=== PATIENT | male | born 1960 | race Caucasian/White ===

== ENCOUNTER 2017-07-09 14:03 | Emergency (ER) | payer BC ==
[2017-07-09 14:17] VITALS: BMI 25.2
--- NOTE | 2017-07-09 14:21 | PDOC ---
Rapid Medical Evaluation Time Seen by Provider: 07/09/17 14:13 Medical Evaluation: Allergies Allergy/AdvReac Type Severity Reaction Status Date / Time No Known Drug Allergies Allergy Unverified 11/26/13 14:27 07/09/17 14:15 I have performed a brief in-person evaluation of this patient. The patient presents with a chief complaint of: Constipation w/ possible rectal pain. Normal BM 2 days ago. No abd pain, n/v. Taking MOM and dulcolax w/ no sig relief. H/o pre-dm, HTN, s/p abd hernia repair >10 years ago. Pertinent physical exam findings:stable I have ordered the following:abd XR The patient will proceed to the ED for further evaluation. Discharge Disposition - Diagnosis Constipation Qualifiers: Constipation type: unspecified constipation type Qualified Code(s): K59.00 - Constipation, unspecified - Referrals Referrals: Janice Olson MD [Primary Care Provider] - - Patient Instructions - Post Discharge Activity
[2017-07-09] MEDS ORDERED: MAGNESIUM CITRATE 300 ML BOTTLE PO ONE (16:23)
[2017-07-09] MEDS ORDERED: MINERAL OIL ENEMA 133 ML ENEMA PR ONE (16:23)
--- NOTE | 2017-07-09 16:27 | PDOC ---
History of Present Illness - General History Source: Patient Exam Limitations: No Limitations - History of Present Illness Initial Comments: 07/09/17 18:04 The patient is a 48 year old male with past medical history of high cholesterol , HTN, diabetes (recently diagnosed), presents to the emergency department due to constipation for the past 2 days. The patient reports he has been drinking milk of magnesia, dulcolax and suppository, with very mild relief. The patient reports crampy pain in the lower quadrant of the abdomen. The patient reports his last two bowel movements were little pellets, today and 2 days ago. The patient reports his baseline normal bowel movement is usually everyday or every other day. The patient reports his last colonoscopy was last year which was normal, another appointment for next year December. The patient reports a change in his diet due to the recent diagnosed of diabetes, more fiber and less starch. The patient reports his last meal was a bowl of cream of wheat. Denies any gas movement or pain. Denies any rectal pain or bleeding. Denies any nausea or vomiting. Denies fever, chills, cough. Denies any chest pain, sob or wheezing. Allergies: NKDA Social history: None reported Surgical history: None reported PCP: Janice Hankins <Adry Jean - Last Filed: 07/09/17 18:05> <Patricia Blanchard - Last Filed: 07/09/17 19:44> - General Chief Complaint: Constipation Stated Complaint: WEAK ABD PAIN Time Seen by Provider: 07/09/17 14:13 Past History <Adry Jean - Last Filed: 07/09/17 18:05> - Past Medical History COPD: No GI Disorders: Yes (POLYPS) HTN: Yes Hypercholesterolemia: Yes - Immunization History Immunization Up to Date: Yes - Suicide/Smoking/Psychosocial Hx Smoking History: Never smoked Have you smoked in the past 12 months: No Hx Alcohol Use: No Drug/Substance Use Hx: No Substance Use Type: None Hx Substance Use Treatment: No <Patricia Blanchard - Last Filed: 07/09/17 19:44> - Past Medical History Allergies/Adverse Reactions: Allergies Allergy/AdvReac Type Severity Reaction Status Date / Time No Known Drug Allergies Allergy Unverified 11/26/13 14:27 Home Medications: Ambulatory Orders Atorvastatin Calcium 10 mg PO HS tablet 11/26/13 Hydrochlorothiazide 12.5 mg PO DAILY tablet 11/26/13 Review of Systems - Review of Systems Able to Perform ROS?: Yes Comments:: 07/09/17 18:04 GENERAL/CONSTITUTIONAL: No fever or chills. No weakness. HEAD, EYES, EARS, NOSE AND THROAT: No change in vision. No ear pain or discharge. No sore throat. CARDIOVASCULAR: No chest pain or shortness of breath. RESPIRATORY: No cough, wheezing, or hemoptysis. GASTROINTESTINAL: (+) constipation for the past 2 days. Crampy belly pain. No nausea, vomiting, diarrhea. GENITOURINARY: No dysuria, frequency, or change in urination. MUSCULOSKELETAL: No joint or muscle swelling or pain. No neck or back pain. SKIN: No rash NEUROLOGIC: No headache, vertigo, loss of consciousness, or change in strength/ sensation. ENDOCRINE: No increased thirst. No abnormal weight change. HEMATOLOGIC/LYMPHATIC: No anemia, easy bleeding, or history of blood clots. ALLERGIC/IMMUNOLOGIC: No hives or skin allergy. <Adry Jean - Last Filed: 07/09/17 18:05> *Physical Exam - Vital Signs Last Vital Signs Temp Pulse Resp BP Pulse Ox 98.7 F 100 H 20 137/79 100 07/09/17 14:14 07/09/17 14:14 07/09/17 14:14 07/09/17 14:14 07/09/17 14:14 - Physical Exam Comments: 07/09/17 18:03 GENERAL: Awake, alert, and fully oriented, in no acute distress HEAD: No signs of trauma EYES: PERRLA, EOMI, sclera anicteric, conjunctiva clear ENT: Auricles normal inspection, hearing grossly normal, nares patent, oropharynx clear without exudates. Moist mucosa NECK: Normal ROM, supple, no lymphadenopathy, JVD, or masses LUNGS: Breath sounds equal, clear to auscultation bilaterally. No wheezes, and no crackles HEART: Regular rate and rhythm, normal S1 and S2, no murmurs, rubs or gallops ABDOMEN: (+) Mild lower left quadrant pain to palpation. Rectal exam showed hard stool in the vault. Soft, No guarding, no rebound. No masses EXTREMITIES: Normal range of motion, no edema. No clubbing or cyanosis. No cords, erythema, or tenderness NEUROLOGICAL: Cranial nerves II through XII grossly intact. Normal speech, normal gait SKIN: Warm, Dry, normal turgor, no rashes or lesions noted. <Adry Jean - Last Filed: 07/09/17 18:05> - Vital Signs Last Vital Signs Temp Pulse Resp BP Pulse Ox 98.7 F 100 H 20 137/79 100 07/09/17 14:14 07/09/17 14:14 07/09/17 14:14 07/09/17 14:14 07/09/17 14:14 <Patricia Blanchard - Last Filed: 07/09/17 19:44> Medical Decision Making - Medical Decision Making 07/09/17 18:04 Documentation prepared by Adry Jean, acting as medical technicians for Patricia Blanchard DO. <Adry Jean - Last Filed: 07/09/17 18:05> - Medical Decision Making 07/09/17 16:24 a/p: 57yo male with 2 days of constipation -passing small hard amounts of stool today and yesterday -took a capful of milk of mag and a dulcolax suppository earlier and had small amount of stool -had outpt labs last week and dx with dm and pt hasn't picked up prescription yet -did change his diet to decrease his carb intake -had a colonoscopy in the past that was "normal", scheduled for his repeat colonoscopy in the fall -on rectal has stool in the vault -will give fleet enema and mag citrate -xray shows nsbgp 07/09/17 19:37 re-eval: pt has had multiple bm in the ED and feels much better states he will call his PMD and gi specialist in the [place] and schedule a follow up. Discussed fluid intake. Stable for d/c to home No n/v in the ED pt states he is hungry and wants to eat at home pt asking to go home. <Patricia Blanchard - Last Filed: 07/09/17 19:44> *DC/Admit/Observation/Transfer <Adry Jean - Last Filed: 07/09/17 18:05> - Discharge Dispostion Decision to Admit order: No - Attestations Physician Attestion: 07/09/17 19:44 I, Dr. Patricia Blanchard DO, attest that this document has been prepared under my direction and personally reviewed by me in its entirety. I further attest, that it accurately reflects all work, treatment, procedures and medical decision -making performed by me. <Patricia Blanchard - Last Filed: 07/09/17 19:44> Diagnosis at time of Disposition: Constipation Qualifiers: Constipation type: unspecified constipation type Qualified Code(s): K59.00 - Constipation, unspecified - Discharge Dispostion Disposition: HOME Condition at time of disposition: Stable - Referrals Referrals: Janice Olson MD [Primary Care Provider] - Hakeem العلي DO [Staff Physician] - - Patient Instructions Printed Discharge Instructions: DI for Constipation Additional Instructions: Please drink plenty of fluids. Please take colace daily (over the counter). Please buy miralax and take 1 capful in 8 oz water every night before bed. Please return to the ED with any further complaints. - Post Discharge Activity
[2017-07-09] MEDS ORDERED: MAGNESIUM CITRATE 300 ML BOTTLE ONE (18:16)
[2017-07-09 20:24] VITALS: BP 126/78; PULSE 88; TEMP 98
== END 2017-07-09 20:23 | disposition home or self-care (01) ==
LOC: JER 14:03
DX: K59.00 Constipation, unspecified (principal); E11.9 Type 2 diabetes mellitus without complications
CPT/HCPCS: 74018-TC-FY; 99284-25

== ENCOUNTER 2023-02-16 16:16 | Inpatient (IN) | payer BC ==
[2023-02-16 18:23] LABS: BASO % 0.5 % (0-2.0); EOS % 0.7 % (0-4.5); HEMATOCRIT 50.4 % (35.4-49); HEMOGLOBIN 17.3 GM/dL (11.7-16.9); LYMPH % 8.3 % (8-40); MCH 31.1 pg (25.7-33.7); MCHC 34.4 g/dl (32.0-35.9); MEAN CELL VOLUME 90.4 fl (80-96); MEAN PLT VOLUME 7.6 fl (7.5-11.1); MONO % 5.8 % (3.8-10.2); NEUT % 84.7 % (42.8-82.8); PLATELET COUNT 250 10^3/uL (134-434); RBC 5.57 M/mm3 (4.00-5.60); RDW 13.3 % (11.9-15.9); WHITE BLOOD COUNT 10.2 K/mm3 (4.0-10.0)
[2023-02-16 18:34] LABS: INR 1.16 (0.83-1.09); PROTHROMBIN TIME (PATIENT) 13.4 SEC (9.7-13.0)
[2023-02-16 18:37] LABS: ACTIVATED PTT 32.5 SECONDS (25.2-36.5)
[2023-02-16 18:38] LABS: POTASSIUM 3.5 mmol/L (3.5-5.1)
[2023-02-16 18:40] LABS: ALBUMIN 3.6 g/dl (3.4-5.0); BLOOD UREA NITROGEN 22.9 mg/dL (7-18); CALCIUM 9.5 mg/dL (8.5-10.1); MAGNESIUM 1.5 mg/dL (1.8-2.4)
[2023-02-16 18:43] LABS: CREATININE 0.9 mg/dL (0.55-1.3)
[2023-02-16 18:45] LABS: BILIRUBIN,TOTAL 0.7 mg/dL (0.2-1); TOT PROT 6.8 g/dl (6.4-8.2)
[2023-02-16 18:49] LABS: N-TERMINAL BNP 2705.8 pg/ml (5-125)
[2023-02-16] MEDS ORDERED: MAGNESIUM SULFATE IN WATER 2 GM/50 ML IVPB IVPB ONE ×2 (19:20→20:58)
[2023-02-16] MEDS ORDERED: ASPIRIN 81 MG CHEWABLE TABLETS PO ONE (20:04)
[2023-02-16] MEDS ORDERED: methylPREDNISolone NA SUCC 125 MG/2 ML VIAL IVPB ONE (20:23)
[2023-02-16] MEDS ORDERED: FUROSEMIDE 40 MG/4 ML INJECTABLE VIAL IVPUSH ONE (20:24)
[2023-02-16 21:22] LABS: POTASSIUM 3.1 mmol/L (3.5-5.1)
[2023-02-16 21:24] LABS: ALBUMIN 3.5 g/dl (3.4-5.0); BLOOD UREA NITROGEN 20.8 mg/dL (7-18); CALCIUM 9.1 mg/dL (8.5-10.1)
[2023-02-16 21:27] LABS: CREATININE 0.8 mg/dL (0.55-1.3)
[2023-02-16 21:29] LABS: BILIRUBIN,TOTAL 0.7 mg/dL (0.2-1); TOT PROT 6.4 g/dl (6.4-8.2)
[2023-02-16] MEDS ORDERED: POTASSIUM CHLORIDE ORAL LIQUID 20 MEQ/15 ML PO ONE (22:06)
[2023-02-16] MEDS ORDERED: PANTOPRAZOLE 40 MG TABLET PO ONE (22:18)
[2023-02-16] MEDS ORDERED: POTASSIUM CHLORIDE ORAL LIQUID 20 MEQ/15 ML ONE (22:19)
[2023-02-16] MEDS ORDERED: ATORVASTATIN CA 10 MG TABLET (FP) ONE (22:19)
[2023-02-16] MEDS ORDERED: methylPREDNISolone NA SUCC 125 MG/2 ML VIAL ONE (22:19)
[2023-02-16] MEDS ORDERED: ASPIRIN 81 MG CHEWABLE TABLETS ONE (22:19)
[2023-02-16] MEDS ORDERED: ENOXAPARIN NA (PORCINE) 40 MG/0.4 ML DISP.SYRIN SQ ONE (22:20)
[2023-02-16] MEDS ORDERED: FUROSEMIDE 40 MG/4 ML INJECTABLE VIAL ONE (22:20)
[2023-02-16] MEDS: INSULIN ASPART SLIDING SCALE (NOVOLOG) 1 VIAL SQ SCH (22:34)
[2023-02-16] MEDS: ATORVASTATIN CA 10 MG TABLET (FP) PO SCH (22:34)
[2023-02-16] MEDS: PANTOPRAZOLE 40 MG TABLET PO SCH (22:34)
[2023-02-16] MEDS: ENOXAPARIN NA (PORCINE) 40 MG/0.4 ML DISP.SYRIN SQ SCH (22:34)
[2023-02-17] MEDS: INSULIN ASPART SLIDING SCALE (NOVOLOG) 1 VIAL SQ SCH ×3 (08:58→18:06)
[2023-02-17] MEDS: PANTOPRAZOLE 40 MG TABLET PO SCH (10:33)
[2023-02-17] MEDS: ENOXAPARIN NA (PORCINE) 40 MG/0.4 ML DISP.SYRIN SQ SCH (10:33)
[2023-02-17] MEDS ORDERED: FUROSEMIDE 40 MG/4 ML INJECTABLE VIAL IVPUSH ONE (14:32)
[2023-02-17] MEDS ORDERED: ATORVASTATIN CA 10 MG TABLET (FP) ONE (23:53)
[2023-02-18] MEDS: INSULIN (LEVEMIR) 100 UNITS/ML UNITS SQ SCH ×3 (00:21→21:25)
[2023-02-18] MEDS: INSULIN ASPART SLIDING SCALE (NOVOLOG) 1 VIAL SQ SCH ×3 (08:04→17:08)
[2023-02-18 08:15] LABS: BASO % 0.4 % (0-2.0); EOS % 0.3 % (0-4.5); HEMATOCRIT 50.2 % (35.4-49); HEMOGLOBIN 16.9 GM/dL (11.7-16.9); LYMPH % 11.7 % (8-40); MCH 30.7 pg (25.7-33.7); MCHC 33.7 g/dl (32.0-35.9); MEAN CELL VOLUME 91.1 fl (80-96); MEAN PLT VOLUME 7.9 fl (7.5-11.1); MONO % 7.6 % (3.8-10.2); PLATELET COUNT 250 10^3/uL (134-434); RBC 5.51 M/mm3 (4.00-5.60); RDW 13.1 % (11.9-15.9)
[2023-02-18 09:30] LABS: BLOOD UREA NITROGEN 22.5 mg/dL (7-18); CALCIUM 8.7 mg/dL (8.5-10.1); POTASSIUM 3.2 mmol/L (3.5-5.1)
[2023-02-18] MEDS ORDERED: FUROSEMIDE 40 MG TABLET (FP) ONE (10:10)
[2023-02-18] MEDS ORDERED: POTASSIUM CHLORIDE TABS 20 MEQ TABLET.ER (FP) PO ONE (10:11)
[2023-02-18] MEDS ORDERED: PANTOPRAZOLE 40 MG TABLET PO ONE (10:11)
[2023-02-18] MEDS ORDERED: ENOXAPARIN NA (PORCINE) 40 MG/0.4 ML DISP.SYRIN SQ ONE (10:11)
[2023-02-18] MEDS: FUROSEMIDE 40 MG TABLET (FP) PO SCH (10:13)
[2023-02-18] MEDS: POTASSIUM CHLORIDE TABS 20 MEQ TABLET.ER (FP) PO SCH (10:13)
[2023-02-18] MEDS: metoPROLOL SUCCINATE 25 MG TAB.SR.24H (FP) PO SCH (10:13)
[2023-02-18] MEDS: PANTOPRAZOLE 40 MG TABLET PO SCH (10:14)
[2023-02-18] MEDS: ENOXAPARIN NA (PORCINE) 40 MG/0.4 ML DISP.SYRIN SQ SCH (10:14)
[2023-02-18 10:52] LABS: HIV INTERPRETATION NEGATIVE (NEGATIVE)
[2023-02-18] MEDS ORDERED: ASPIRIN 81 MG CHEWABLE TABLETS ONE (17:03)
[2023-02-18] MEDS: ASPIRIN COATED 81 MG TABLET.EC PO SCH (17:08)
[2023-02-18 19:03] VITALS: BMI 22.9
[2023-02-18] MEDS: ATORVASTATIN CA 10 MG TABLET (FP) PO SCH ×2 (21:23)
[2023-02-19] MEDS: INSULIN ASPART SLIDING SCALE (NOVOLOG) 1 VIAL SQ SCH ×3 (06:07→17:35)
[2023-02-19] MEDS: INSULIN (LEVEMIR) 100 UNITS/ML UNITS SQ SCH ×2 (06:11→22:54)
[2023-02-19 07:16] LABS: POTASSIUM 3.4 mmol/L (3.5-5.1)
[2023-02-19 07:18] LABS: BLOOD UREA NITROGEN 24.5 mg/dL (7-18); CALCIUM 8.6 mg/dL (8.5-10.1)
[2023-02-19 07:20] LABS: BASO % 0.7 % (0-2.0); HEMOGLOBIN 17.5 GM/dL (11.7-16.9); MCH 31.2 pg (25.7-33.7); MCHC 34.3 g/dl (32.0-35.9); MEAN CELL VOLUME 91.1 fl (80-96); MEAN PLT VOLUME 7.6 fl (7.5-11.1); MONO % 9.6 % (3.8-10.2); NEUT % 60.7 % (42.8-82.8); PLATELET COUNT 264 10^3/uL (134-434); RDW 13.4 % (11.9-15.9); WHITE BLOOD COUNT 7.8 K/mm3 (4.0-10.0)
[2023-02-19] MEDS: ENOXAPARIN NA (PORCINE) 40 MG/0.4 ML DISP.SYRIN SQ SCH (09:47)
[2023-02-19] MEDS: metoPROLOL SUCCINATE 25 MG TAB.SR.24H (FP) PO SCH (09:47)
[2023-02-19] MEDS: ASPIRIN COATED 81 MG TABLET.EC PO SCH (09:49)
[2023-02-19] MEDS: POTASSIUM CHLORIDE TABS 20 MEQ TABLET.ER (FP) PO SCH (09:49)
[2023-02-19] MEDS: PANTOPRAZOLE 40 MG TABLET PO SCH (09:49)
[2023-02-19] MEDS: FUROSEMIDE 40 MG TABLET (FP) PO SCH (11:43)
[2023-02-19] MEDS: ATORVASTATIN CA 10 MG TABLET (FP) PO SCH (22:55)
[2023-02-20 06:55] LABS: BASO % 0.9 % (0-2.0); EOS % 2.7 % (0-4.5); HEMATOCRIT 47.5 % (35.4-49); HEMOGLOBIN 15.9 GM/dL (11.7-16.9); LYMPH % 26.8 % (8-40); MCH 30.8 pg (25.7-33.7); MCHC 33.4 g/dl (32.0-35.9); MEAN CELL VOLUME 92.2 fl (80-96); MEAN PLT VOLUME 7.6 fl (7.5-11.1); MONO % 8.6 % (3.8-10.2); PLATELET COUNT 211 10^3/uL (134-434); RBC 5.15 M/mm3 (4.00-5.60); WHITE BLOOD COUNT 6.9 K/mm3 (4.0-10.0)
[2023-02-20] MEDS: INSULIN (LEVEMIR) 100 UNITS/ML UNITS SQ SCH ×2 (07:00→21:15)
[2023-02-20] MEDS: INSULIN ASPART SLIDING SCALE (NOVOLOG) 1 VIAL SQ SCH ×3 (07:00→16:55)
[2023-02-20 07:03] LABS: POTASSIUM 3.7 mmol/L (3.5-5.1)
[2023-02-20 07:04] LABS: CALCIUM 8.4 mg/dL (8.5-10.1)
[2023-02-20 07:08] LABS: CREATININE 0.9 mg/dL (0.55-1.3)
[2023-02-20] MEDS: POTASSIUM CHLORIDE TABS 20 MEQ TABLET.ER (FP) PO SCH (09:55)
[2023-02-20] MEDS: ASPIRIN COATED 81 MG TABLET.EC PO SCH (09:55)
[2023-02-20] MEDS: PANTOPRAZOLE 40 MG TABLET PO SCH (09:55)
[2023-02-20] MEDS: metoPROLOL SUCCINATE 25 MG TAB.SR.24H (FP) PO SCH (09:55)
[2023-02-20] MEDS: ENOXAPARIN NA (PORCINE) 40 MG/0.4 ML DISP.SYRIN SQ SCH (09:55)
[2023-02-20] MEDS: FUROSEMIDE 40 MG TABLET (FP) PO SCH (09:56)
[2023-02-20] MEDS: ATORVASTATIN CA 10 MG TABLET (FP) PO SCH (21:15)
[2023-02-21 05:48] VITALS: RESP 18
[2023-02-21] MEDS: INSULIN ASPART SLIDING SCALE (NOVOLOG) 1 VIAL SQ SCH (06:30)
[2023-02-21] MEDS: INSULIN (LEVEMIR) 100 UNITS/ML UNITS SQ SCH (07:13)
[2023-02-21] MEDS ORDERED: INSULIN (LEVEMIR) 100 UNITS/ML UNITS SQ ONE (09:39)
[2023-02-21] MEDS: ASPIRIN COATED 81 MG TABLET.EC PO SCH (10:07)
[2023-02-21] MEDS: PANTOPRAZOLE 40 MG TABLET PO SCH (10:08)
[2023-02-21] MEDS: POTASSIUM CHLORIDE TABS 20 MEQ TABLET.ER (FP) PO SCH (10:08)
[2023-02-21] MEDS: metoPROLOL SUCCINATE 25 MG TAB.SR.24H (FP) PO SCH (10:08)
[2023-02-21] MEDS: FUROSEMIDE 40 MG TABLET (FP) PO SCH (10:08)
[2023-02-21 10:57] VITALS: BP 106/64; PULSE 106; TEMP 98.2
[2023-02-21] MEDS: ENOXAPARIN NA (PORCINE) 40 MG/0.4 ML DISP.SYRIN SQ SCH (11:05)
== END 2023-02-21 11:28 | disposition short-term general hospital (02) | DRG 291 ==
LOC: JER 16:16 → JERBED 19:58 → J4W 02-18 17:50
PROVIDERS: ADMIT Internal Medicine; ATTEND Internal Medicine
DX: I11.0 Hypertensive heart disease with heart failure (principal); I50.21 Acute systolic (congestive) heart failure; E78.5 Hyperlipidemia, unspecified; E11.9 Type 2 diabetes mellitus without complications; R00.2 Palpitations; D75.1 Secondary polycythemia; K59.00 Constipation, unspecified
CPT/HCPCS: 0241U-QW; 36415; 71046-TC-FY; 80048; 80053; 82962; 83036; 83735; 83880; 84439; 84443; 84484; 85025; 85610; 85730; 86708; 86803; 87340; 87389; 87517; 87635; 93005; 93010; 93306-TC; 93308; 99285-25